=== PATIENT | female | born 1985 | race Caucasian/White ===

== ENCOUNTER → 2017-10-05 | Outpatient (CLI) | payer MEDICAID ==
[~2017-10-05] MED LIST: SERT-184 PO
[2017-10-05 12:21] LABS: PLATELET COUNT, AUTOMATED 290 K/uL (150-450)
[2017-10-05 12:35] LABS: LDL CHOLESTEROL 120 mg/dl
== END ==
LOC: LAB 11:53
PROVIDERS: ATTEND Emergency Medicine
DX: F41.9 Anxiety disorder, unspecified (principal); R20.8 Other disturbances of skin sensation
CPT/HCPCS: 36415; 82040; 82247; 82310; 82374; 82435; 82465; 82565; 82607; 82947; 83090; 83718; 83921; 84075; 84132; 84155; 84295; 84443; 84450; 84460; 84478; 84520; 85025

== ENCOUNTER → 2017-10-11 | Outpatient (CLI) | payer MEDICAID | LOC: LAB 14:49 | PROVIDERS: ATTEND Student in an Organized Health Care Education/Training Program | DX: O20.0 Threatened abortion (principal) | CPT/HCPCS: 36415; 84702 ==

== ENCOUNTER → 2017-10-13 | Outpatient (CLI) | payer MEDICAID | LOC: LAB 11:40 | PROVIDERS: ATTEND Student in an Organized Health Care Education/Training Program | DX: O20.0 Threatened abortion (principal) | CPT/HCPCS: 36415; 84702 ==

== ENCOUNTER → 2018-04-28 | Outpatient (CLI) | payer MEDICAID | LOC: LAB 12:58 | PROVIDERS: ATTEND Student in an Organized Health Care Education/Training Program | DX: N92.6 Irregular menstruation, unspecified (principal) | CPT/HCPCS: 36415; 84702 ==

== ENCOUNTER → 2018-05-02 | Outpatient (CLI) | payer MEDICAID | LOC: LAB 09:30 | PROVIDERS: ATTEND Student in an Organized Health Care Education/Training Program | DX: O20.0 Threatened abortion (principal) | CPT/HCPCS: 36415; 84702 ==

== ENCOUNTER → 2018-05-04 | Outpatient (CLI) | payer MEDICAID | LOC: LAB 09:33 | PROVIDERS: ATTEND Student in an Organized Health Care Education/Training Program | DX: O20.0 Threatened abortion (principal); N92.6 Irregular menstruation, unspecified | CPT/HCPCS: 36415; 84443; 84702; 86900; 86901 ==

== ENCOUNTER 2018-09-06 19:17 | Emergency (ER) | payer MEDICAID ==
--- NOTE | 2018-09-06 19:22 | ER Report ---
History and Physical Time Seen By MD: 19:22 HPI/ROS CHIEF COMPLAINT: Elbow pain HISTORY OF PRESENT ILLNESS: This is a 33-year-old female presents to the emergency department for abdominal pain. Patient states that she's been having abdominal pain since Tuesday, primarily in the left side from the left lower quadrant radiating into the left flank. Patient is increasing in intensity, is sharp intermittent nausea no vomiting. No fevers or chills. No diarrhea. No dysuria. Denies chest pain or shortness of breath. REVIEW OF SYSTEMS: Constitutional: No fever, no chills. Eyes: No discharge. ENT: No sore throat. Cardiovascular: No chest pain, no palpitations. Respiratory: No cough, no shortness of breath. Gastrointestinal: As above. Genitourinary: No hematuria. Musculoskeletal: As above. Skin: No rashes. Neurological: No headache. Allergies: Coded Allergies: No Known Drug Allergies (Unverified , 09/06/18) Home Meds Reported Medications Sertraline Hcl (SERTRALINE HCL) 50 Mg Tablet, 2 TAB PO QDAY, TAB 09/06/18 Discontinued Scripts Sertraline Hcl (SERTRALINE HCL) 50 Mg Tablet, 1-2 TAB PO QDAY, #180 TAB 3 Refills Prov:ARLIN LEIGH MD 10/24/17 Past Medical/Surgical History Patient has a past medical and surgical history of appendectomy, 3 vaginal births. Reviewed Nurses Notes: Yes Smoking Status: Never Smoker Constitutional Vital Sign - Last 24 Hours 09/06/18 19:24 Temp 98.4 Pulse 80 Resp 20 B/P (MAP) 138/97 Pulse Ox 94 O2 Delivery Room Air Physical Exam General Appearance: The patient is alert, has no immediate need for airway protection and no signs of toxicity. Eyes: Pupils equal and round no pallor or injection. ENT, Mouth: Mucous membranes are moist. Respiratory: There are no retractions, lungs are clear to auscultation. Cardiovascular: Regular rate and rhythm. No murmurs, clicks or rubs. Gastrointestinal: Abdomen is soft tenderness to the left mid to lower quadrant, no masses, normoactive bowel sounds. No abdominal bruits. Neurological: Alert and oriented 4. Moving all extremity. Following all commands. No focal neuro deficits. Skin: Warm and dry, no rashes. Musculoskeletal: Neck is supple non tender. Mild left CVA tenderness. Extremities are nontender, nonswollen and have full range of motion. DIFFERENTIAL DIAGNOSIS: After history and physical exam differential diagnosis was considered for abdominal pain in a female including but not limited to ovarian cyst, diverticulitis, diverticulosis, pelvic inflammatory disease, ovarian torsion, urinary tract infection, and appendicitis. Medical Decision Making Data Points Result Diagram: 09/06/18194009/06/181940 Laboratory Hematology Test 09/06/18 19:41 09/06/18 19:54 Red Blood Count 4.89 M/uL (4.17-5.56) Mean Corpuscular Volume 86.8 fL (80.0-96.0) Mean Corpuscular Hemoglobin 28.9 pg (26.0-33.0) Mean Corpuscular Hemoglobin Concent 33.3 g/dL (32.0-36.0) Red Cell Distribution Width 13.8 % (11.5-14.5) Mean Platelet Volume 7.7 fL (7.2-11.1) Neutrophils (%) (Auto) 45.5 % (39.4-72.5) Lymphocytes (%) (Auto) 44.3 % (17.6-49.6) Monocytes (%) (Auto) 6.7 % (4.1-12.4) Eosinophils (%) (Auto) 2.9 % (0.4-6.7) Basophils (%) (Auto) 0.6 % (0.3-1.4) Nucleated RBC Relative Count (auto) 0.1 /100WBC Neutrophils # (Auto) 2.9 K/uL (2.0-7.4) Lymphocytes # (Auto) 2.9 K/uL (1.3-3.6) Monocytes # (Auto) 0.4 K/uL (0.3-1.0) Eosinophils # (Auto) 0.2 K/uL (0.0-0.5) Basophils # (Auto) 0.0 K/uL (0.0-0.1) Nucleated RBC Absolute Count (auto) 0.01 K/uL Sodium Level 137 mmol/L (137-145) Potassium Level 3.8 mmol/L (3.5-5.0) Chloride Level 101 mmol/L (98-107) Carbon Dioxide Level 26 mmol/L (22-31) Blood Urea Nitrogen 12 mg/dl (7-18) Creatinine 0.70 mg/dl (0.52-1.04) Glomerular Filtration Rate Calc > 60.0 Random Glucose 91 mg/dl (75-110) Calcium Level 10.1 mg/dl (8.4-10.2) Total Bilirubin < 0.1 mg/dl (0.2-1.3) Aspartate Amino Transf (AST/SGOT) 32 U/L (0-35) Alanine Aminotransferase (ALT/SGPT) 50 U/L (0-56) Alkaline Phosphatase 76 U/L (0-126) Total Protein 8.2 g/dl (6.3-8.2) Albumin 4.7 g/dl (3.5-5.0) Urine Color Yellow Urine Clarity Clear Urine pH 7.0 pH (4.8-9.5) Urine Specific [place]free 1.012 Urine Protein Negative mg/dL (NEGATIVE) Urine Glucose (UA) Negative mg/dL (NEGATIVE) Urine Ketones Negative mg/dL (NEGATIVE) Urine Blood Negative (NEGATIVE) Urine Nitrite Negative (NEGATIVE) Urine Bilirubin Negative (NEGATIVE) Urine Urobilinogen Negative mg/dL (0.2-1.9) Urine Leukocyte Esterase Negative (NEGATIVE) Urine RBC 1 /HPF (0-2/HPF) Urine WBC None /HPF (0-5/HPF) Urine Squamous Epithelial Cells Few /LPF (</=FEW) Urine Bacteria Few /HPF (NONE-FEW) Urine Hyaline Casts Few /LPF (NONE-FEW) Urine Mucus None /HPF (NONE-FEW) Urine HCG, Qualitative Negative (NEGATIVE) Chemistry Test 09/06/18 19:41 09/06/18 19:54 White Blood Count 6.5 k/uL (4.5-11.0) Red Blood Count 4.89 M/uL (4.17-5.56) Hemoglobin 14.2 g/dL (12.0-16.0) Hematocrit 42.5 % (34.0-47.0) Mean Corpuscular Volume 86.8 fL (80.0-96.0) Mean Corpuscular Hemoglobin 28.9 pg (26.0-33.0) Mean Corpuscular Hemoglobin Concent 33.3 g/dL (32.0-36.0) Red Cell Distribution Width 13.8 % (11.5-14.5) Platelet Count 310 K/uL (150-450) Mean Platelet Volume 7.7 fL (7.2-11.1) Neutrophils (%) (Auto) 45.5 % (39.4-72.5) Lymphocytes (%) (Auto) 44.3 % (17.6-49.6) Monocytes (%) (Auto) 6.7 % (4.1-12.4) Eosinophils (%) (Auto) 2.9 % (0.4-6.7) Basophils (%) (Auto) 0.6 % (0.3-1.4) Nucleated RBC Relative Count (auto) 0.1 /100WBC Neutrophils # (Auto) 2.9 K/uL (2.0-7.4) Lymphocytes # (Auto) 2.9 K/uL (1.3-3.6) Monocytes # (Auto) 0.4 K/uL (0.3-1.0) Eosinophils # (Auto) 0.2 K/uL (0.0-0.5) Basophils # (Auto) 0.0 K/uL (0.0-0.1) Nucleated RBC Absolute Count (auto) 0.01 K/uL Glomerular Filtration Rate Calc > 60.0 Calcium Level 10.1 mg/dl (8.4-10.2) Total Bilirubin < 0.1 mg/dl (0.2-1.3) Aspartate Amino Transf (AST/SGOT) 32 U/L (0-35) Alanine Aminotransferase (ALT/SGPT) 50 U/L (0-56) Alkaline Phosphatase 76 U/L (0-126) Total Protein 8.2 g/dl (6.3-8.2) Albumin 4.7 g/dl (3.5-5.0) Urine Color Yellow Urine Clarity Clear Urine pH 7.0 pH (4.8-9.5) Urine Specific Carefree 1.012 Urine Protein Negative mg/dL (NEGATIVE) Urine Glucose (UA) Negative mg/dL (NEGATIVE) Urine Ketones Negative mg/dL (NEGATIVE) Urine Blood Negative (NEGATIVE) Urine Nitrite Negative (NEGATIVE) Urine Bilirubin Negative (NEGATIVE) Urine Urobilinogen Negative mg/dL (0.2-1.9) Urine Leukocyte Esterase Negative (NEGATIVE) Urine RBC 1 /HPF (0-2/HPF) Urine WBC None /HPF (0-5/HPF) Urine Squamous Epithelial Cells Few /LPF (</=FEW) Urine Bacteria Few /HPF (NONE-FEW) Urine Hyaline Casts Few /LPF (NONE-FEW) Urine Mucus None /HPF (NONE-FEW) Urine HCG, Qualitative Negative (NEGATIVE) Urinalysis Test 09/06/18 19:54 Urine Color Yellow Urine Clarity Clear Urine pH 7.0 pH (4.8-9.5) Urine Specific Carefree 1.012 Urine Protein Negative mg/dL (NEGATIVE) Urine Glucose (UA) Negative mg/dL (NEGATIVE) Urine Ketones Negative mg/dL (NEGATIVE) Urine Blood Negative (NEGATIVE) Urine Nitrite Negative (NEGATIVE) Urine Bilirubin Negative (NEGATIVE) Urine Urobilinogen Negative mg/dL (0.2-1.9) Urine Leukocyte Esterase Negative (NEGATIVE) Urine RBC 1 /HPF (0-2/HPF) Urine WBC None /HPF (0-5/HPF) Urine Squamous Epithelial Cells Few /LPF (</=FEW) Urine Bacteria Few /HPF (NONE-FEW) Urine Hyaline Casts Few /LPF (NONE-FEW) Urine Mucus None /HPF (NONE-FEW) Urine HCG, Qualitative Negative (NEGATIVE) EKG/Imaging Imaging Location: [facility] - [place] Patient: Jennifer Guevara : 1985 Visit/Account:[id number] Date of Sevice: 09/06/2018 EXAMINATION: CT Abdomen and Pelvis With Contrast 09/06/2018 7:39 PM HISTORY: Left lower quadrant abdominal pain TECHNIQUE: Spiral scan was through the abdomen and pelvis during injection of nonionic iodinated intravenous contrast. Contrast: 75 mL of IV Isovue 370. One of the following dose optimization techniques was utilized in the perfo rmance of this exam: Automated exposure control; adjustment of the mA and/or kV according to the patient's size; or use of an iterative reconstruction technique. Specific details can be referenced in the facility's radiology CT exam operational policy. COMPARISON STUDIES: none. FINDINGS: Liver / biliary: negative Pancreas: negative Spleen: Small incidental accessory splenule. Adrenal glands: negative Kidneys / retroperitoneum: Symmetric enhancement. No stone or obstruction. Pelvic structures: 1.9 cm mildly crenated involuting follicle or corpus luteum in the left ovary. Small amount of free fluid in the cul-de-sac. Coarse calcification in the right uterine wall presumably is a fibroid. Ovoid nabothian cyst in the left side of the cervix. Bowel / peritoneum / mesenteries: No colon wall thickening or significant diverticular change. Moderate volume of fecal material with relative distal sparing. Appendix is either small or absent. There is some tubular structures adjacent to the cecum which appear to be collapsed loops of distal ileum. Vessels: negative Musculoskeletal / Body wall: No acute finding. Incidental osteitis condensans jakob bilaterally. Lymph node assessment: negative Lower chest: negative IMPRESSION: 1. Involuting cyst or corpus luteum in the left ovary with a small amount of free fluid in the pelvis. Could recent ovarian follicle rupture account for the clinical presentation? 2. No other acute etiology for left-sided pain. Moderate volume of fecal material in the colon is of questionable acute significance with respect to the pain history. Report Dictated By: Corey Santos MD at 09/06/2018 9:12 PM Report E-Signed By: Corey Santos MD at 09/06/2018 9:20 PM WSN:[id number] ED Course/Re-evaluation Clinical Indication for ER IV: Hydration, IV Access ED Course Patient was admitted to room. A history and physical were obtained. Differential diagnoses were considered. An IV was started. A CBC, CMP were obtained. A UA and urine were obtained. A 1 L normal saline bolus was given. Offered pain medication and nausea medicine at this time, patient refused. Laboratory studies unremarkable. Negative UA. A CT of the abdomen and pelvis showing a left ovarian cyst, I did review the results with the patient. Patient was given 30 mg IV Toradol. Instructed to follow-up with her [employer] if no improvement within one week, return to the ER for any concerns or worsening symptoms. Patient exposed understanding was discharged home. She was also instructed to take ibuprofen or Tylenol as needed for pain. Decision to Disposition Date: September 06, 2018 Decision to Disposition Time: 22:25 Depart Departure Latest Vital Signs Vital Signs Date Time Temp Pulse Resp B/P (MAP) Pulse Ox O2 Delivery O2 Flow Rate FiO2 09/06/18 19:24 98.4 80 20 138/97 94 Room Air Impression: Primary Impression: Ovarian cyst, left Condition: Improved Disposition: HOME OR SELF-CARE Referrals: DEBORAH HAGER DO (PCP) 1 Week Patient Instructions: Ovarian Cyst (ED), Ruptured Ovarian Cyst (ED) Additional Instructions: You have an ovarian cyst that is likely causing the discomfort on the left side. You can take 800 mg ibuprofen every 8 hours alternating with 500-1000 mg Tylenol, every 8 hours. Be sure to drink plenty of fluids. Get as much rest as possible. If no improvement in the next week please follow-up with your [employer] for reevaluation. Return to the ER for any other concerns or worsening symptoms. CATIA PRIDEP-BC September 06, 2018 19:22
[2018-09-06] MEDS ORDERED: SERT-184 PO (19:28)
[2018-09-06] MEDS ORDERED: NS(*) 0.9% 1000 ML BAG 1,000 ML IV ONE (19:39)
[2018-09-06 19:46] LABS: PLATELET COUNT, AUTOMATED 310 K/uL (150-450)
[2018-09-06] MEDS ORDERED: IOPAMIDOL 76% 100 ML INFUS BTL 100 ML ONE (19:58)
--- NOTE | 2018-09-06 21:24 | RADIOLOGY IMAGING REPORT ---
FACILITY: [facility] - [place] PATIENT NAME: Jennifer Guevara : 1985 MR: [id number] V: [id number] EXAM DATE: ORDERING PHYSICIAN: CATIA PRIDE TECHNOLOGIST: Location: [facility] Patient: Jennifer Guevara : 1985 Visit/Account:[id number] Date of Sevice: 09/06/2018 EXAMINATION: CT Abdomen and Pelvis With Contrast 09/06/2018 7:39 PM HISTORY: Left lower quadrant abdominal pain TECHNIQUE: Spiral scan was through the abdomen and pelvis during injection of nonionic iodinated in travenous contrast. Contrast: 75 mL of IV Isovue 370. One of the following dose optimization techniques was utilized in the performance of this exam: Autom ated exposure control; adjustment of the mA and/or kV according to the patient's size; or use of an i terative reconstruction technique. Specific details can be referenced in the facility's radiology C T exam operational policy. COMPARISON STUDIES: none. FINDINGS: Liver / biliary: negative Pancreas: negative Spleen: Small incidental accessory splenule. Adrenal glands: negative Kidneys / retroperitoneum: Symmetric enhancement. No stone or obstruction. Pelvic structures: 1.9 cm mildly crenated involuting follicle or corpus luteum in the left ovary. Small amount of free fluid in the cul-de-sac. Coarse calcification in the right uterine wall presumab ly is a fibroid. Ovoid nabothian cyst in the left side of the cervix. Bowel / peritoneum / mesenteries: No colon wall thickening or significant diverticular change. Modera te volume of fecal material with relative distal sparing. Appendix is either small or absent. There i s some tubular structures adjacent to the cecum which appear to be collapsed loops of distal ileum. Vessels: negative Musculoskeletal / Body wall: No acute finding. Incidental osteitis condensans jakob bilaterally. Lymph node assessment: negative Lower chest: negative IMPRESSION: 1. Involuting cyst or corpus luteum in the left ovary with a small amount of free fluid in the pelvis . Could recent ovarian follicle rupture account for the clinical presentation? 2. No other acute etiology for left-sided pain. Moderate volume of fecal material in the colon is of questionable acute significance with respect to the pain history. Report Dictated By: Corey Santos MD at 09/06/2018 9:12 PM Report E-Signed By: Corey Santos MD at 09/06/2018 9:20 PM WSN:[id number]
[2018-09-06] MEDS ORDERED: KETOROLAC 30 MG/ML VIAL IVP ONE (21:35)
[2018-09-06 22:00] VITALS: BP 134/86
[2018-09-08] MEDS ORDERED: VALA100059 PO (11:02)
[2018-09-08] MEDS ORDERED: LIDO700A19 TOP (11:02)
[2018-09-08] MEDS ORDERED: OXYC-865 PO (11:02)
== END 2018-09-06 22:33 | disposition home or self-care (01) ==
LOC: ER 19:53
DX: N83.202 Unspecified ovarian cyst, left side (principal)
CPT/HCPCS: 74177; 81001; 81025; 85025; 96361; 96374; 99284; J1885; J7030; Q9967; 82040; 82247; 82310; 82374; 82435; 82565; 82947; 84075; 84132; 84155; 84295; 84450; 84460; 84520